=== PATIENT | female | born 1955 | race Caucasian/White ===

== ENCOUNTER 2020-02-06 14:38 | Emergency (ER) | payer OTHER ==
[~2020-02-06] VITALS: Ht 160 cm; Wt 86.4 kg
[~2020-02-06 14:38] MED LIST: HYDR-3965 PO; IBUP-2070 PO; UNK CHOLESTEROL; [UNRECOGNIZED DRUG - REMARK]
[2020-02-06] MEDS ORDERED: CLOTRIMAZOLE 1% 15 GM CREAM TP ONE (15:15)
[2020-02-06] MEDS ORDERED: CEPHALEXIN MONOHYDRATE 500 MG CAPSULE PO ONE (15:15)
[2020-02-06] MEDS ORDERED: ACETAMINOPHEN 325 MG TABLET PO ONE (15:15)
[2020-02-06] MEDS ORDERED: HYDROCORTISONE 1% 30 GM CREAM TP ONE (15:15)
[2020-02-06 16:14] VITALS: BP 130/75
== END 2020-02-06 16:16 | disposition home or self-care (01) ==
LOC: EMS 14:38
DX: L30.4 Erythema intertrigo (principal); N39.0 Urinary tract infection, site not specified; F32.9 Major depressive disorder, single episode, unspecified; E78.00 Pure hypercholesterolemia, unspecified; I10 Essential (primary) hypertension; Z90.710 Acquired absence of both cervix and uterus
CPT/HCPCS: 81002-TC; Z7502; Z7610